=== PATIENT | female | born 1930 | race Caucasian/White ===

== ENCOUNTER 2017-07-07 16:38 | Emergency (ER) | payer OTHER ==
--- NOTE | 2017-07-07 16:55 | PDOC ---
Rapid Medical Evaluation Time Seen by Provider: 07/07/17 16:49 Medical Evaluation: Allergies Allergy/AdvReac Type Severity Reaction Status Date / Time No Known Allergies Allergy Verified 07/07/17 16:51 07/07/17 16:52 The patient presents with a chief complaint of: left flank pain since last night , no fever, cough, sob, or urinary complaints I have performed a brief in-person evaluation of this patient. Pertinent physical exam findings: no rash no cva tenderness, no reproducible pain I have ordered the following:ua, ucx The patient will proceed to the ED for further evaluation. Discharge Disposition - Diagnosis Left flank pain - Referrals - Patient Instructions - Post Discharge Activity
[2017-07-07 16:57] VITALS: TEMP 97.7; BMI 25.4
--- NOTE | 2017-07-07 19:27 | PDOC ---
Attending Attestation - Resident Resident Name: Suzanna Chawla - ED Attending Attestation I have performed the following: I have examined & evaluated the patient, The case was reviewed & discussed with the resident, I agree w/resident's findings & plan, Exceptions are as noted <Armond Seals - Last Filed: 07/07/17 19:27> - HPI HPI: 07/07/17 20:13 Patient is an 87 year old female with a significant past medical history of Dementia, HTN, Hypothyroidism,Hyperlipidemia, Tachycardic arrhythmia (possibly) , who presents to the ED with complaints of left sided chest pain that began 2 days ago. Patient reports left sided chest pain is an intermittent chest pain that intensified this afternoon. She does not rate chest pain on a scale but states it is a bone pain and not muscular. Patient is a poor historian but denies any trauma to the affected area. Denies nausea, vomiting. Denies fever, cough, SOB. Denies trauma to affected area. Denies diarrhea, constipation. Denies dysuria, hematuria, urinary frequency. Denies any other symptoms. Allergies: None Social history: Retired. , Lives alone Former smoker, Social drinker, No illicit drugs. Surgical history:. None PMD: Dr. Lv Peterson. <Remberto Howe - Last Filed: 07/07/17 20:37> Heart Score/ECG Review - ECG Intrepretation Comment:: 07/07/17 20:36 Normal Sinus Rhythm with sinus arrhythmia Normal ECG <Remberto Howe - Last Filed: 07/07/17 20:37>
--- NOTE | 2017-07-07 19:32 | PDOC ---
History of Present Illness - General Chief Complaint: Pain, Acute Stated Complaint: CHEST PAIN Time Seen by Provider: 07/07/17 16:49 History Source: Patient - History of Present Illness Initial Comments: 07/07/17 19:31 Patient is an 87 y.o. female with a PMH of HTN, DLD, Hypothyroidism and Alzheimer's Dementia who presents to the ED today c/o 2 day h/o pain on her L lower lower rib cage. Patient states the pain is intermittent and she denies any recent trauma. Patient denies any substernal chest pain, shortness of breath, fevers, chills, nausea, vomiting, diarrhea, constipation or complaints. NKDA Surgical: denies Social: (-) nicotine (previously smoked 1 ppd > 20 years, quit 5 years previous) , denies alcohol, denies recreational drugs PMD: Dr. Peterson, [facility] Past History - Past Medical History Allergies/Adverse Reactions: Allergies Allergy/AdvReac Type Severity Reaction Status Date / Time No Known Allergies Allergy Verified 07/07/17 16:51 Home Medications: Ambulatory Orders Levothyroxine [Synthroid -] 88 mcg PO DAILY 08/13/15 Pravastatin Sodium [Pravachol -] 20 mg PO HS 08/13/15 Diltiazem HCl [Diltiazem ER] 120 mg PO DAILY 07/07/17 Donepezil HCl [Aricept -] 10 mg PO DAILY 07/07/17 Lisinopril 10 mg PO DAILY 07/07/17 COPD: No HTN: Yes Hypercholesterolemia: Yes - Immunization History Immunization Up to Date: No - Suicide/Smoking/Psychosocial Hx Smoking History: Former smoker Have you smoked in the past 12 months: No If you are a former smoker, when did you quit?: 5 Information on smoking cessation initiated: No Hx Alcohol Use: No Drug/Substance Use Hx: No Substance Use Type: None Review of Systems - Review of Systems Constitutional: No: Chills, Fever Respiratory: No: Cough, Shortness of Breath Cardiac (ROS): No: Chest Pain ABD/GI: No: Constipated, Diarrhea, Nausea, Vomiting : No: Burning, Dysuria All Other Systems: Reviewed and Negative *Physical Exam - Vital Signs Last Vital Signs Temp Pulse Resp BP Pulse Ox 97.7 F 67 17 141/78 98 07/07/17 16:52 07/07/17 16:52 07/07/17 16:52 07/07/17 16:52 07/07/17 16:52 - Physical Exam General Appearance: Yes: Nourished, Thin Neck: positive: Trachea midline, Supple Respiratory/Chest: positive: Lungs Clear Cardiovascular: positive: S1, S2 Musculoskeletal: positive: Normal Inspection. negative: CVA Tenderness (R), CVA Tenderness (L) Extremity: positive: Normal Capillary Refill, Normal Inspection Integumentary: positive: Normal Color, Dry, Warm Neurologic: positive: Fully Oriented, Alert ED Treatment Course - RADIOLOGY Radiology Studies Ordered: Category Date Time Status CHEST PA & LAT [RAD] Stat Radiology 07/07/17 19:09 Ordered Medical Decision Making - Medical Decision Making 07/07/17 19:39 Patient is an 87 y.o. female who presents with pain in her L lower rib cage. As patient denies any substernal chest pain, shortness of breath, diaphoresis or nausea, clinical suspicion for ACS is low. PLAN: 1. CXR Reassess 07/08/17 00:22 CXR negative for rib fracture or dislocation. Patient discharged home with Motrin for pain and instruction to f/u with PCP for general medical, non acute, complaints. *DC/Admit/Observation/Transfer Diagnosis at time of Disposition: Bone pain - Discharge Dispostion Disposition: HOME Condition at time of disposition: Good Admit: No - Referrals Referrals: Lv Peterson [Primary Care Provider] - - Patient Instructions Printed Discharge Instructions: DI for Muscle Strain Additional Instructions: Please see Dr. Peterson in the next 3-5 days for evaluation of your rib cage pain as well as your leg cramping. You can use Motrin (400 mg) as many as 3 times daily for your pain. Please return to the Emergency Department for any chest pain, shortness of breath or any worsening, concerning or new symptoms. - Post Discharge Activity
[2017-07-07 19:53] LABS: URINE APPEARANCE CLEAR; URINE BILIRUBIN NEGATIVE (NEGATIVE); URINE BLOOD NEGATIVE (NEGATIVE); URINE COLOR LTYELLOW; URINE GLUCOSE (UA) NEGATIVE (NEGATIVE); URINE KETONE NEGATIVE (NEGATIVE); URINE NITRITE NEGATIVE (NEGATIVE); URINE PROTEIN NEGATIVE (NEGATIVE); URINE UROBILINOGEN NEGATIVE mg/dL (0.2-1.0)
[2017-07-07 20:14] LABS: URINE LEUK ESTERASE 1+ (NEGATIVE)
[2017-07-07 20:16] LABS: URINE BACTERIA RARE /hpf (NONE SEEN); URINE MUCUS RARE; URINE RBC 1 /hpf (0-3); URINE WBC 4 /hpf (3-5)
[2017-07-07 22:15] VITALS: BP 140/82; PULSE 76
--- NOTE | 2017-07-08 10:44 | EKG ---
Test Reason : Blood Pressure : / mmHG Vent. Rate : 074 BPM Atrial Rate : 074 BPM P-R Int : 138 ms QRS Dur : 084 ms QT Int : 416 ms P-R-T Axes : 075 -50 033 degrees QTc Int : 461 ms NORMAL SINUS RHYTHM POSSIBLE LEFT ATRIAL ENLARGEMENT LEFT AXIS DEVIATION SEPTAL INFARCT , AGE UNDETERMINED ABNORMAL ECG Confirmed by MD KATHY, WHITNEY ([id number]) on 07/08/2017 10:44:07 AM Referred By: Confirmed By:WHITNEY CHAVEZ MD
[2017-07-08 13:05] LABS: URINE LEUK ESTERASE 1+ (NEGATIVE)
== END 2017-07-07 22:17 | disposition home or self-care (01) ==
LOC: JER 16:38
DX: R07.1 Chest pain on breathing (principal); I10 Essential (primary) hypertension; E78.5 Hyperlipidemia, unspecified; E78.00 Pure hypercholesterolemia, unspecified; E03.9 Hypothyroidism, unspecified; G30.8 Other Alzheimer's disease; F02.80 Dementia in other diseases classified elsewhere, unspecified severity, without behavioral disturbance, psychotic disturbance, mood disturbance, and anxiety
CPT/HCPCS: 71020-TC; 81003; 81015; 87086; 93005; 93010; 99282-25